=== PATIENT | male | born 1965 | race African-American/Black ===

== ENCOUNTER 2018-07-27 09:15 | Inpatient (IN) ==
[2018-07-27] MEDS ORDERED: Morphine Inj 4 MG/ML Vial IV.PUSH ONE ×2 (12:32→21:30)
[2018-07-27] MEDS ORDERED: Sod Chloride 0.9% Inj 1,000 ML IV.SIG ONE (12:32)
[2018-07-27 13:07] LABS: Baso % (Auto) 0.2 % (0.0-2.0); Hematocrit 47.3 % (39.0-51.0); Lymph # (Auto) 0.4 th/mm3 (1.0-4.8); Lymph % (Auto) 3.7 % (9.0-44.0); Mean Corpuscular HGB Conc 33.9 % (32.0-36.0); Mean Corpuscular Hemoglobin 31.3 pg (27.0-34.0); Mean Corpuscular Volume 92.3 fL (80.0-100.0); Mean Platelet Volume 9.6 fL (7.0-11.0); Mono # (Auto) 0.4 th/mm3 (0.0-0.9); Mono % (Auto) 3.9 % (0.0-8.0); Neut # (Auto) 9.2 th/mm3 (1.8-7.7); Neut % (Auto) 92.2 % (16.0-70.0); Platelet Count 220 th/mm3 (150-450); Red Blood Count 5.13 mil/mm3 (4.50-5.90); Red Cell Distribution Width 13.2 % (11.6-17.2)
[2018-07-27 13:16] LABS: Activated Partial Thrombo Time 24.7 sec (23.4-31.7); INR 1.1 Ratio; Prothrombin Time 11.4 sec (9.8-11.6)
[2018-07-27 13:24] LABS: Alanine Aminotransferase 25 U/L (12-78); Albumin 4.7 g/dL (3.4-5.0); Anion Gap 7 meq/L (5-15); Aspartate Aminotransferase 14 U/L (15-37); Blood Urea Nitrogen 13 mg/dL (7-18); Calcium 9.8 mg/dL (8.5-10.1); Carbon Dioxide 28.6 meq/L (21.0-32.0); Chloride 102 meq/L (98-107); Glomerular Filtration Rate 78 mL/min (>89); Glucose,Random 134 mg/dL (74-106); Potassium 3.6 meq/L (3.5-5.1); Sodium 138 meq/L (136-145)
[2018-07-27 13:26] LABS: Alkaline Phosphatase 93 U/L (45-117); Total Protein 9.3 g/dL (6.4-8.2)
--- NOTE | 2018-07-27 15:08 | ED ---
HPI General Chief complaint: Abdominal Pain Stated complaint: ABD pain Time Seen by Provider: 07/27/18 12:27 Source: patient Mode of arrival: ambulatory Limitations: no limitations History of Present Illness HPI narrative: Patient is a 53 year old male who comes in complaining of abdominal pain. He has a history of inguinal hernia and he says last night the pain got worse and he could no longer push the hernia back in. He says he started vomiting last night. He says he had a bowel movement yesterday. He denies fever or chills. He has not followed up with a surgeon yet due to financial reasons. Severity is moderate. Related Data Previous Rx's Medication Instructions Recorded ibuprofen 600 mg PO Q6H PRN #20 tab 05/29/18 Allergies Allergy/AdvReac Type Severity Reaction Status Date / Time No Known Allergies Allergy Verified 07/27/18 09:20 Review of Systems ROS: all other systems reviewed are negative Constitutional Denies chills and Denies fever(s) ENT Denies dizziness Cardiovascular Denies chest pain and Denies dyspnea Respiratory Denies dyspnea Gastrointestinal Reports abdominal pain, Reports nausea and Reports vomiting Genitourinary Denies flank pain Musculoskeletal Denies myalgias and Denies arthralgias Integumentary/Breasts Denies sores and Denies wounds Neurologic Denies focal weakness and Denies numbness [facility] Medical History Medical History Inguinal hernia (Acute) Patient denies medical problems (Acute) Social History Social History Substance History: No History of Abuse Second Hand Smoke Exposure: No Smoking Status: Never smoker How Often Do You Have a Drink Containing Alcohol: Never Recent Travel in [facility] within the Last 8 Weeks: No Recent Out of Country Travel within the Last 8 Weeks: No Immunization History Tetanus Immunization: >5 Years Exam Narrative Exam Narrative: GENERAL: Awake and alert, in no acute distress. SKIN: Focused skin assessment warm/dry. HEAD: Atraumatic. Normocephalic. EYES: Pupils equal and round. No scleral icterus. No injection or drainage. ENT: Mucous membranes pink and moist. NECK: Trachea midline. No JVD. CARDIOVASCULAR: Regular rate and rhythm. No murmur appreciated. RESPIRATORY: No accessory muscle use. Clear to auscultation. Breath sounds equal bilaterally. GASTROINTESTINAL: Abdomen soft, non-tender, nondistended. Non-reducible right sided inguinal hernia. MUSCULOSKELETAL: No obvious deformities. No clubbing. No cyanosis. No edema. NEUROLOGICAL: Awake and alert. No obvious cranial nerve deficits. Motor grossly within normal limits. Normal speech. PSYCHIATRIC: Appropriate mood and affect; insight and judgment normal. Procedures Procedural Sedation Indications: other (hernia reduction) ASA Class: ASA 1 Normal Healthy Patient Preparation: hr assistant applied, pulse oximeter, capnometry used, supplemental O2 applied, suction/airway equipment at bedside and IV secured IV Propofol Dose (mgs): 100 Patient Tolerated Procedure: well and no complications Complications: none Interventions: oxygen applied Course Initial Documented Vital Signs Temperature 98.7 F 07/27/18 09:18 Pulse Rate 89 07/27/18 09:18 Respiratory Rate 18 07/27/18 09:18 Blood Pressure 158/98 H 07/27/18 09:18 Pulse Oximetry 98 07/27/18 09:18 Last Documented Vital Signs Temperature 98.2 F 07/31/18 08:00 Pulse Rate 52 L 07/31/18 08:00 Respiratory Rate 18 07/31/18 08:00 Blood Pressure 159/77 H 07/31/18 08:00 Pulse Oximetry 99 07/31/18 08:00 Medical Decision Making MDM Narrative Medical decision making narrative: Patient is a 53 year old male who comes in complaining of abdominal pain. Exam shows incarcerated hernia. Attempts made to reduce the hernia were unsuccessful. IV established, labs sent. Labs show no acute abnormalities. Dr. Holley of general surgery consulted. Dr. Chapman will take the patient to the OR. Admitted for further management. Medical Screen Exam Complete: Yes Emergency Medical Condition: Yes Differential Diagnosis Differential Diagnosis: incarcerated hernia vs strangulated hernia vs obstruction Medical Records Medical records reviewed: Yes I reviewed the patient's medical records. Lab Data Lab results reviewed: Yes I reviewed the patient's lab results. Result diagrams: 07/27/18 12:40 07/27/18 12:40 Lab Results 07/27/18 07/27/18 07/27/18 Range/Units 12:40 12:40 12:40 WBC 10.0 (4.0-11.0) th/mm3 RBC 5.13 (4.50-5.90) mil/mm3 Hgb 16.0 (13.0-17.0) gm/dL Hct 47.3 (39.0-51.0) % MCV 92.3 (80.0-100.0) fL MCH 31.3 (27.0-34.0) pg MCHC 33.9 (32.0-36.0) % RDW 13.2 (11.6-17.2) % Plt Count 220 (150-450) th/mm3 MPV 9.6 (7.0-11.0) fL Neut % (Auto) 92.2 H (16.0-70.0) % Lymph % (Auto) 3.7 L (9.0-44.0) % [place] % (Auto) 3.9 (0.0-8.0) % Eos % (Auto) 0.0 (0.0-4.0) % Baso % (Auto) 0.2 (0.0-2.0) % Neut # (Auto) 9.2 H (1.8-7.7) th/mm3 Lymph # (Auto) 0.4 L (1.0-4.8) th/mm3 [place] # (Auto) 0.4 (0.0-0.9) th/mm3 Eos # (Auto) 0.0 (0.0-0.4) th/mm3 Baso # (Auto) 0.0 (0.0-0.2) th/mm3 WBC Differential . Differential Comment Auto diff final PT 11.4 (9.8-11.6) sec INR 1.1 Ratio APTT 24.7 (23.4-31.7) sec Sodium 138 (136-145) meq/L Potassium 3.6 (3.5-5.1) meq/L Chloride 102 (98-107) meq/L Carbon Dioxide 28.6 (21.0-32.0) meq/L Anion Gap 7 (5-15) meq/L BUN 13 (7-18) mg/dL Creatinine 1.19 (0.60-1.30) mg/dL Estimated GFR 78 L (>89) mL/min Random Glucose 134 H (74-106) mg/dL Lactic Acid (0.4-2.0) mmol/L Calcium 9.8 (8.5-10.1) mg/dL Total Bilirubin 1.0 (0.2-1.0) mg/dL AST 14 L (15-37) U/L ALT 25 (12-78) U/L Alkaline Phosphatase 93 (45-117) U/L Total Protein 9.3 H (6.4-8.2) g/dL Albumin 4.7 (3.4-5.0) g/dL 07/27/18 Range/Units 12:45 WBC (4.0-11.0) th/mm3 RBC (4.50-5.90) mil/mm3 Hgb (13.0-17.0) gm/dL Hct (39.0-51.0) % MCV (80.0-100.0) fL MCH (27.0-34.0) pg MCHC (32.0-36.0) % RDW (11.6-17.2) % Plt Count (150-450) th/mm3 MPV (7.0-11.0) fL Neut % (Auto) (16.0-70.0) % Lymph % (Auto) (9.0-44.0) % [place] % (Auto) (0.0-8.0) % Eos % (Auto) (0.0-4.0) % Baso % (Auto) (0.0-2.0) % Neut # (Auto) (1.8-7.7) th/mm3 Lymph # (Auto) (1.0-4.8) th/mm3 [place] # (Auto) (0.0-0.9) th/mm3 Eos # (Auto) (0.0-0.4) th/mm3 Baso # (Auto) (0.0-0.2) th/mm3 WBC Differential Differential Comment PT (9.8-11.6) sec INR Ratio APTT (23.4-31.7) sec Sodium (136-145) meq/L Potassium (3.5-5.1) meq/L Chloride (98-107) meq/L Carbon Dioxide (21.0-32.0) meq/L Anion Gap (5-15) meq/L BUN (7-18) mg/dL Creatinine (0.60-1.30) mg/dL Estimated GFR (>89) mL/min Random Glucose (74-106) mg/dL Lactic Acid 2.0 (0.4-2.0) mmol/L Calcium (8.5-10.1) mg/dL Total Bilirubin (0.2-1.0) mg/dL AST (15-37) U/L ALT (12-78) U/L Alkaline Phosphatase (45-117) U/L Total Protein (6.4-8.2) g/dL Albumin (3.4-5.0) g/dL Discharge Plan Discharge Disposition Patient Disposition: 01 Discharge Home Discharge Condition Condition: Fair Discharge Order Discharge Orders: Discharge Order (Routine); Ordered 07/31/18 Ordered By: Leland Chapman Discharge Details Anticipated Discharge Date: 07/31/18 Discharge Comment: script on chart Physicians Team ED Provider: Tiffany Lugo Primary Care Provider: Primary Care Amanda Cervantes Attending Provider: Leland Chapman Status ED Status: Left Department Discharge Information Discharge Date/Time: 07/27/18 17:34
[2018-07-27] MEDS ORDERED: Chlorhexidine Gluconate 2% 1 Pack (2 Cloths) TOPICAL ONE (20:30)
[2018-07-27] MEDS ORDERED: Lidocaine 1%/Epinephrine 1:100,000 Inj 30 ML Vial ONE (21:06)
[2018-07-27] MEDS ORDERED: Bupivacaine/Epinephrine Inj 0.25% 50 ML Vial ONE (21:06)
--- NOTE | 2018-07-28 05:48 | P.PNGS ---
Subjective Patient reports: still having pain (persistent RIH) Physical Exam Vital signs: Vital Signs 07/27/18 09:18 07/27/18 11:47 07/27/18 12:49 Temperature 98.7 F Pulse Rate 89 80 Respiratory Rate 18 18 Blood Pressure 158/98 H 138/101 H Pulse Oximetry 98 99 100 07/27/18 13:45 07/27/18 16:57 07/27/18 20:00 Temperature 98.8 F Pulse Rate 55 L 56 L 57 L Respiratory Rate 20 18 18 Blood Pressure 147/90 H 173/85 H 165/90 H Pulse Oximetry 100 98 98 07/28/18 00:00 Temperature 98.3 F Pulse Rate 59 L Respiratory Rate 18 Blood Pressure 130/78 Pulse Oximetry 98 Intake & Output 07/27/18 07/27/18 07/28/18 06:59 18:59 06:59 Intake Total 1000 / 1000 Balance 1000 / 1000 Weight 69.4 kg 71.8 kg Intake: IV 1000 / 1000 NS Inj 1,000 ML @ Wide Open IV. 1000 / 1000 SIG BOLUS ONE Rx#:[id number] Oral 0 / 0 Other: # Voids 1 - Routine Exam Scrotal: Present: swelling (RIH) Results - Labs 07/27/18 12:40 07/27/18 12:40 Laboratory Results - last 24 hr 07/27/18 07/27/18 07/27/18 12:40 12:40 12:40 WBC 10.0 RBC 5.13 Hgb 16.0 Hct 47.3 MCV 92.3 MCH 31.3 MCHC 33.9 RDW 13.2 Plt Count 220 MPV 9.6 Neut % (Auto) 92.2 H Lymph % (Auto) 3.7 L Miner % (Auto) 3.9 Eos % (Auto) 0.0 Baso % (Auto) 0.2 Neut # (Auto) 9.2 H Lymph # (Auto) 0.4 L Miner # (Auto) 0.4 Eos # (Auto) 0.0 Baso # (Auto) 0.0 WBC Differential . Differential Comment Auto diff final PT 11.4 INR 1.1 APTT 24.7 Sodium 138 Potassium 3.6 Chloride 102 Carbon Dioxide 28.6 Anion Gap 7 BUN 13 Creatinine 1.19 Estimated GFR 78 L Random Glucose 134 H Lactic Acid Calcium 9.8 Total Bilirubin 1.0 AST 14 L ALT 25 Alkaline Phosphatase 93 Total Protein 9.3 H Albumin 4.7 07/27/18 12:45 WBC RBC Hgb Hct MCV MCH MCHC RDW Plt Count MPV Neut % (Auto) Lymph % (Auto) Miner % (Auto) Eos % (Auto) Baso % (Auto) Neut # (Auto) Lymph # (Auto) Miner # (Auto) Eos # (Auto) Baso # (Auto) WBC Differential Differential Comment PT INR APTT Sodium Potassium Chloride Carbon Dioxide Anion Gap BUN Creatinine Estimated GFR Random Glucose Lactic Acid 2.0 Calcium Total Bilirubin AST ALT Alkaline Phosphatase Total Protein Albumin Assessment and Plan - Plan RIH assessed at bedside and manually reduced. I discussed with the OR who stated staff still not available till 11pm for surgical intervention I will defer surgery until the OR is more accommodating and discussed with patient surgical vs non surgical intervention. Pt will need observation to clinically confirm no bowel compromise and operative intervention for his recurrent hernia
--- NOTE | 2018-07-28 07:26 | MH ---
cc: Leland Chapman MD DATE OF ADMISSION: 07/27/2018 CHIEF COMPLAINT: Right inguinal groin pain, recurrent right inguinal hernia, incarceration of inguinal hernia. HISTORY OF PRESENT ILLNESS: The patient is a 53-year-old male who presents with acute onset of right lower groin pain. He states the pain has been going on for approximately 24 hours. He has had a history of inguinal hernia for approximately 6 months and this has increased in size and become increasingly more painful. He notes the pain was sharp, currently a 7/10, at its worse, it was 10/10, right inguinal area. No radiation, better with lying still, worse with movement and palpation. He had recent history of coming to the emergency department due to incarceration of right inguinal hernia, which was able to be reduced approximately 3 weeks ago and the hernia has returned. It is currently nonreducible. He complains of several episodes of nausea and vomiting. He did have a bowel movement yesterday. Denies fevers or chills. PAST MEDICAL HISTORY: Right inguinal hernia. PAST SURGICAL HISTORY: No surgical history. SOCIAL HISTORY: History of smoking. Denies current smoking, ETOH, or IVDA. ALLERGIES: NO KNOWN DRUG ALLERGIES. MEDICATIONS: See EMR. FAMILY HISTORY: Denies diabetes or hypertension. REVIEW OF SYSTEMS: GENERAL: Denies fevers or chills. HEENT: Denies eye pain or ear pain. NECK: Denies swelling or pain. LUNGS: Denies cough or wheeze. HEART: Denies palpitations or chest pain. ABDOMEN: Complains of nausea, vomiting, groin pain, hernia. EXTREMITIES: Denies numbness or tingling. PSYCHIATRIC: Denies change in mood or sensorium. PHYSICAL EXAMINATION: GENERAL: The patient in no acute distress. VITAL SIGNS: Temperature 98.7, pulse 86, respirations 18, blood pressure 158/98, saturation 98%. HEENT: Pupils equal, round, reactive. NECK: Supple. Trachea midline. LUNGS: Clear to auscultation, bilateral expansion. HEART: S1, S2. Regular. ABDOMEN: Soft. Positive tenderness to palpation in right groin area. Positive incarceration. Non-reducible right inguinal hernia. No erythema. EXTREMITIES: Warm and well perfused. NEUROLOGIC: GCS of 15. 5/5 motor in all extremities. PSYCHIATRIC: Appropriate mood, appropriate insight. LABORATORY AND DIAGNOSTIC DATA: WBC 10, hemoglobin 16, hematocrit 47.3, platelets 220. INR is 1.1. Sodium 138, potassium 3.6, chloride 102, BUN 13, creatinine 1.1, calcium 9.8, AST 14, ALT 25, alkaline phosphatase 93. ASSESSMENT: The patient is a 53-year-old male with recurrent right inguinal hernia incarceration. PLAN: After a full workup attempted by several physicians for reduction and not feasible, we will plan for urgent operation and operative intervention discussed with the patient in detail regarding need for operative repair, possible bowel resection. Discussed further with the patient that operating in an urgent setting is not as ideal as it puts out more significant risk. The patient states understanding and agrees and would like to proceed with the operation. I spoke with the OR, who stated that the surgery would be done in a somewhat timely fashion; however, he could not accommodate until at least 7 p.m. for surgical intervention. MD CYNTHIA Barrera/shirley , 05:42 AM , 05:52 AM
--- NOTE | 2018-07-28 20:15 | P.PN ---
Subjective Interval history: Tolerating dinner; no nausea or pain Physical Exam Vital signs: Vital Signs 07/28/18 00:00 07/28/18 08:00 07/28/18 12:00 Temperature 98.3 F 98.3 F 98.5 F Pulse Rate 59 L 56 L 52 L Respiratory Rate 18 19 16 Blood Pressure 130/78 150/76 H 128/72 Pulse Oximetry 98 94 L 99 07/28/18 16:00 Temperature 98.0 F Pulse Rate 49 L Respiratory Rate 16 Blood Pressure 126/71 Pulse Oximetry 99 Intake & Output 07/28/18 07/28/18 07/29/18 06:59 18:59 06:59 Intake Total 320 / 320 500 / 500 Balance 320 / 320 500 / 500 Weight 71.8 kg Intake: Oral 320 / 320 500 / 500 Other: # Voids 2 3 # Bowel Movements 1 - Routine Exam Groin: Present: inguinal hernia (Right inguinal hernia reducible) Results - Labs CBC & Chem 7: 07/27/18 12:40 07/27/18 12:40 Assessment and Plan - Assessment (1) Right inguinal hernia Code(s): K40.90 - Unilateral inguinal hernia, without obstruction or gangrene, not specified as recurrent Status: Acute Plan: RIH repair with mesh Monday, 07/30 AM - Attending Attestation I attest that I had a [id number] encounter with the patient on the same day, and personally performed and documented my assessment and findings in the medical record. The following services were provided during this hospital visit: Chart data review, vital sign assessments/reviewing monitor data Review of consultation notes if present Medication orders/review and/or management Ordering and/or reviewing lab tests Ordering and/or interpreting/reviewing x-rays and/or diagnostic studies Care of the patient and discussion of the patient with the care team Documentation time To help prompt me to consider important information that might be impacting today's encounter and assessment, Information from prior notes written by myself or my colleagues may have been "brought forward/copy and pasted" into today's note.
--- NOTE | 2018-07-29 10:57 | P.PNGS ---
Subjective Patient reports: feels better, pain is less, tolerating a regular diet (no problems with hernia, goes in and out.) Physical Exam Vital signs: Vital Signs 07/28/18 12:00 07/28/18 16:00 07/28/18 20:00 Temperature 98.5 F 98.0 F 98.7 F Pulse Rate 52 L 49 L 50 L Respiratory Rate 16 16 18 Blood Pressure 128/72 126/71 133/75 Pulse Oximetry 99 99 99 07/29/18 00:00 07/29/18 08:00 Temperature 98.8 F 98.6 F Pulse Rate 43 L 54 L Respiratory Rate 18 19 Blood Pressure 132/74 143/77 H Pulse Oximetry 98 96 Intake & Output 07/28/18 07/29/18 07/29/18 18:59 06:59 18:59 Intake Total 500 / 500 320 / 320 Balance 500 / 500 320 / 320 Weight 72.6 kg Intake: Oral 500 / 500 320 / 320 Other: # Voids 3 2 # Bowel Movements 1 - Routine Abdominal Exam Present: soft, normoactive bowel sounds, hernia Comments: reducible soft [facility] Results - Labs 07/27/18 12:40 07/27/18 12:40 Assessment and Plan - Assessment (1) Right inguinal hernia Code(s): K40.90 - Unilateral inguinal hernia, without obstruction or gangrene, not specified as recurrent Status: Acute - Plan Plan to repair in AM if OR can figure out a time. No time given by OR
[2018-07-29] MEDS ORDERED: ceFAZolin 1 GM Premix Inj 1 GM/50 ML FROZ.PIGGY IV.SIG SCH (11:00)
[2018-07-29] MEDS ORDERED: Metoprolol Tartrate 25 MG Tablet PO ONE (19:48)
[2018-07-29] MEDS ORDERED: Chlorhexidine Gluconate 2% 1 Pack (2 Cloths) TOPICAL ONE (19:48)
[2018-07-29] MEDS ORDERED: Sodium Chlor 0.9% Inj 500 ML IV.SIG SCH (20:00)
[2018-07-30] MEDS ORDERED: Sugammadex Inj 200 MG/2 ML Vial IV.PUSH ONE (11:01)
--- NOTE | 2018-07-30 11:11 | P.PNGS ---
Subjective Patient reports: still having pain (npo) Physical Exam Vital signs: Vital Signs 07/29/18 12:00 07/29/18 16:00 07/29/18 20:00 Temperature 98.6 F 99.5 F 99.3 F Pulse Rate 50 L 47 L 46 L Respiratory Rate 17 18 18 Blood Pressure 132/73 140/86 149/81 H Pulse Oximetry 99 99 98 07/30/18 00:00 07/30/18 08:00 Temperature 99.1 F 98.1 F Pulse Rate 45 L 63 Respiratory Rate 18 19 Blood Pressure 160/86 H 157/82 H Pulse Oximetry 99 99 Intake & Output 07/29/18 07/30/18 07/30/18 18:59 06:59 18:59 Intake Total 625 / 625 Balance 625 / 625 Weight 72.7 kg Intake: Oral 625 / 625 Other: # Voids 3 2 # Bowel Movements 1 - Routine Abdominal Exam Present: soft (hernia) Results - Labs 07/27/18 12:40 07/27/18 12:40 Assessment and Plan - Assessment (1) Right inguinal hernia Code(s): K40.90 - Unilateral inguinal hernia, without obstruction or gangrene, not specified as recurrent Status: Acute - Plan RIH to OR for repair today discussed with staff and patient patient has been marked, discussed risks such as numbness and post operative pain, and chronic nerve pain consent signed
--- NOTE | 2018-07-30 11:23 | P.OP ---
- Preoperative Diagnosis (1) Right inguinal hernia - Postoperative Diagnosis (1) Right inguinal hernia Procedure: open right inguinal hernia repair with mesh Anesthesia: GETA Surgeon: Leland Chapman MD Estimated blood loss (mL): 5 Pathology: none sent Operation and Findings: large right inguinal hernia
[2018-07-30] MEDS ORDERED: Morphine Sulfate Inj 2 MG/ML Vial IV.PUSH PRN (11:24)
[2018-07-30] MEDS ORDERED: fentaNYL Citrate Inj 100 MCG/2 ML Ampul ONE (13:14)
[2018-07-30] MEDS ORDERED: Morphine Inj 4 MG/ML Vial ONE (13:14)
[2018-07-30] MEDS ORDERED: *morphine SULFATE 4 MG/ML PERIprocedure ONLY ONE (13:48)
--- NOTE | 2018-07-31 06:47 | ECG ---
Date Performed: 07/29/2018 Time Performed: 21:36:47 PTAGE: 53 years EKG: SINUS BRADYCARDIA MARKED LEFT AXIS DEVIATION POSSIBLE LATERAL MYOCARDIAL INFARCTION , PROBA PARMJIT OLD ABNORMAL ECG NO PREVIOUS TRACING DOCTOR: Simone Lopez Interpretating Date/Time 07/31/2018 06:44:44
--- NOTE | 2018-07-31 08:45 | P.PNGS ---
Subjective Patient reports: no new complaints Physical Exam Vital signs: Vital Signs 07/30/18 13:05 07/30/18 13:15 07/30/18 13:30 Temperature 98.8 F Pulse Rate 72 68 62 Respiratory Rate 16 16 16 Blood Pressure 187/92 H 166/82 H 166/86 H Pulse Oximetry 100 97 98 07/30/18 13:45 07/30/18 14:00 07/30/18 15:54 Temperature 98.0 F Pulse Rate 60 60 73 Respiratory Rate 16 16 17 Blood Pressure 167/80 H 163/79 H 146/85 H Pulse Oximetry 98 98 96 07/30/18 20:00 07/31/18 00:00 Temperature 98.6 F 99.2 F Pulse Rate 54 L 50 L Respiratory Rate 17 16 Blood Pressure 134/87 128/74 Pulse Oximetry 96 100 Intake & Output 07/30/18 07/31/18 07/31/18 18:59 06:59 18:59 Intake Total 2210 / 2210 Output Total 10 / 10 Balance 2200 / 2200 Weight 74.2 kg Intake: IV 1050 / 1050 LR 1000 mL Inj 1,000 ML @ 30 1000 / 1000 mls/hr IV.SIG .Q24H [facility] Rx#: [id number] Ancef 1 GM Premix Inj 1 gm In 50 / 50 50 ml @ 100 mls/hr IV.SIG DIGITAL PROGRAM MANAGER [facility] Rx#:[id number] Oral 960 / 960 Anesthesia Amount 200 / 200 Output: Estimated Blood Loss 10 / 10 Other: # Voids 2 1 - Routine Abdominal Exam Present: soft (right inguinal incisional pain) Results - Labs 07/27/18 12:40 07/27/18 12:40 Assessment and Plan - Assessment (1) Right inguinal hernia Code(s): K40.90 - Unilateral inguinal hernia, without obstruction or gangrene, not specified as recurrent Status: Acute - Plan POD 1 RIH repair PLAN reg diet oob pain control po d/c home today ambulate
[2018-07-31 10:34] VITALS: BP 159/77; PULSE 52; RESP 18; TEMP 98.2; O2SAT 99
--- NOTE | 2018-07-31 16:46 | MP ---
cc: Leland Chapman MD DATE OF OPERATION: 07/30/2018 PREOPERATIVE DIAGNOSIS: Incarcerated right inguinal hernia. POSTOPERATIVE DIAGNOSIS: Incarcerated right inguinal hernia. PROCEDURE PERFORMED: Open right inguinal hernia repair with mesh 3 x 6 cm. SURGEON: Leland Chapman MD TOP LIFT CUTTER: Jl Vasquez MD. Dr. Jl Vasquez was necessary due to the complexity of the case. Dr. Vasquez assisted with retraction and suturing. ANESTHESIA: GETA. IV FLUIDS: See anesthesia sheet. ESTIMATED BLOOD LOSS: 10 mL DRAINS: None. COMPLICATIONS: None. WOUND CLASSIFICATION: Clean. SPECIMENS: None. FINDINGS: Hemostasis. A large indirect inguinal hernia. INDICATIONS: The patient is a 53-year-old male who presents with recurrent acute right groin pain and presence of incarcerated inguinal hernia. The patient had initial nausea, vomiting and no bowel movement. A decision was made for operative intervention including right inguinal hernia repair. DETAILS OF PROCEDURE: The patient was taken to the operating suite, placed in a supine position. He was prepped and draped in the usual sterile fashion after the induction of general endotracheal anesthesia. A brief timeout was done, stating he correct patient, procedure, surgical site. We were all in agreement with this. Attention was directed to the right groin area where the landmarks were identified including the ASIS and pubic tubercle. A transverse incision was made in the right lower groin area. This was done with a 15 blade after injection of local anesthetic. Further dissection was done with electro Bovie cautery. This was done to the external fascia. External fascia was identified and cleaned off using interdigitation and Kittners. The stab tay incision was made in the direction of the length of the fibers of the external oblique. Metzenbaum scissors were used to extend open this superficial layer. The ilioinguinal nerve was identified and protected. The cord and structures, along with a large hernia sac were identified. The pubic tubercle was palpated and identified and the cord and sac were mobilized together. The sac was identified inferomedial to the cord structures and tediously dissected off the cord structures both with DeBakey graspers and bluntly. Once the sac was completely mobilized, the sac was opened and the contents were clean and the sac was palpated. The bowel was brought into the wound bed and was completely viable without any evidence of ischemia or compromise. This was reduced back into the abdomen and the sac was then ligated with a 2-0 Vicryl suture. A cord lipoma was noted and also removed and ligated with 3-0 suture. Next, a 3 x 6 mesh was obtained and cut to size and cut for 2 little flaps in order to facilitate entrance of the cord. The pubic tube was identified and 0 Ethibond sutures were used to tack the mesh to reinforce and recreate the inguinal floor. This was done Kieran ligament, respectively. The cord was brought in between the 2 leaflets and leaflets were sewn together to recreate the deep inguinal ring. The irrigation was done, hemostasis was noted. The external oblique was then closed with a 3-0 Vicryl suture. This recreated the superficial ring. Next, local anesthetic injected and Titus's fascia was also closed in layers. This was done with a 3-0 Vicryl. A 4-0 Monocryl was used to close the subcuticular script incision. Sterile dressings including Steri-Strips and Mastisol were placed. Patient tolerated procedure well. No operative complications. All lap and instrument counts were correct at the end of the procedure. The testicle was palpated and noted to be reduced back down into the scrotum. Athletic supporter was placed. The patient was extubated, and taken to the PACU. MD CYNTHIA Barrera/norberto/josé miguel , 03:13 PM , 03:27 PM
== END 2018-07-31 10:37 | disposition home or self-care (01) ==
LOC: NEPE 09:15 → NEDA 15:10 → N07 17:32
PROVIDERS: ADMIT Surgery; ATTEND Surgery